=== PATIENT | female | born 1980 | race Caucasian/White ===

== ENCOUNTER 2021-07-26 18:48 | Emergency (ER) | payer OTHER ==
[2021-07-26 19:00] VITALS: BP 129/81; PULSE 100; TEMP 98; BMI 22.3
[2021-07-26] MEDS ORDERED: DEXAMETHASONE LIQUID 0.5 MG/5 ML PO ONE (19:46)
[2021-07-26] MEDS ORDERED: DEXAMETHASONE SOD PHOSPHATE 10 MG/1 ML VIAL ONE (19:48)
[2021-07-26 20:23] LABS: BASO % 0.6 % (0-2.0); EOS % 0.1 % (0-4.5); HEMATOCRIT 38.1 % (32.4-45.2); HEMOGLOBIN 12.8 GM/dL (10.7-15.3); LYMPH % 10.4 % (8-40); MCH 30.1 pg (25.7-33.7); MCHC 33.5 g/dl (32.0-36.0); MEAN CELL VOLUME 89.8 fl (80-96); MEAN PLT VOLUME 7.7 fl (7.5-11.1); MONO % 4.5 % (3.8-10.2); NEUT % 84.4 % (42.8-82.8); PLATELET COUNT 264 10^3/uL (134-434); RBC 4.24 M/mm3 (3.60-5.2); RDW 13.9 % (11.6-15.6); WHITE BLOOD COUNT 12.1 K/mm3 (4.0-10.0)
[2021-07-26 20:42] LABS: CALCIUM 8.7 mg/dL (8.5-10.1)
[2021-07-26 20:43] LABS: ALBUMIN 3.7 g/dl (3.4-5.0); BLOOD UREA NITROGEN 9.4 mg/dL (7-18)
[2021-07-26 20:46] LABS: CREATININE 0.8 mg/dL (0.55-1.3)
[2021-07-26 20:47] LABS: BILIRUBIN,TOTAL 0.8 mg/dL (0.2-1)
[2021-07-26] MEDS ORDERED: KETOROLAC TROMETHAMINE 30 MG/1 ML VIAL IVPUSH ONE (20:47)
[2021-07-26] MEDS ORDERED: KETOROLAC TROMETHAMINE 30 MG/1 ML VIAL ONE (20:50)
== END 2021-07-26 22:50 | disposition home or self-care (01) ==
LOC: JER 18:48
PROC: 3E033GC Introduction of Other Therapeutic Substance into Peripheral Vein, Percutaneous Approach (ICD-10-PCS; principal; 2021-07-26)
DX: S10.10XA Unspecified superficial injuries of throat, initial encounter (principal); Y04.8XXA Assault by other bodily force, initial encounter
CPT/HCPCS: 36415; 70491-TC; 80053; 84703; 85025; 99285-25; Q9967

== ENCOUNTER 2021-07-28 13:19 | Emergency (ER) | payer OTHER ==
[2021-07-28 13:42] VITALS: BMI 22.3
[2021-07-28] MEDS ORDERED: ACETAMINOPHEN 1000 MG/100 ML VIAL (NON FORMULARY) IVPB ONE (14:23)
[2021-07-28] MEDS ORDERED: LACTATED RINGERS SOLUTION 1000 ML INFUS.BAG IV ONE (14:24)
[2021-07-28] MEDS ORDERED: ACETAMINOPHEN INJECTION 100 ML IVPB ONE (14:30)
[2021-07-28] MEDS ORDERED: AMPICILLIN NA/SULBACTAM NA 3 GM in SODIUM CHLORIDE 100 ML IVPB ONE (14:47)
[2021-07-28 15:33] LABS: INR 1.01 (0.83-1.09); PROTHROMBIN TIME (PATIENT) 12.4 SEC (9.7-13.0)
[2021-07-28 15:36] LABS: ACTIVATED PTT 31.6 SECONDS (25.2-36.5)
[2021-07-28 15:41] LABS: CALCIUM 8.9 mg/dL (8.5-10.1)
[2021-07-28 15:42] LABS: ALBUMIN 3.9 g/dl (3.4-5.0); BLOOD UREA NITROGEN 16.2 mg/dL (7-18)
[2021-07-28 15:45] LABS: CREATININE 0.8 mg/dL (0.55-1.3)
[2021-07-28 15:47] LABS: BILIRUBIN,TOTAL 0.6 mg/dL (0.2-1); TOT PROT 8.4 g/dl (6.4-8.2)
[2021-07-28 15:58] LABS: BASO % 0.6 % (0-2.0); EOS % 0.3 % (0-4.5); HEMATOCRIT 40.2 % (32.4-45.2); HEMOGLOBIN 13.5 GM/dL (10.7-15.3); LYMPH % 21.8 % (8-40); MCHC 33.5 g/dl (32.0-36.0); MEAN CELL VOLUME 89.4 fl (80-96); MEAN PLT VOLUME 7.9 fl (7.5-11.1); MONO % 6.2 % (3.8-10.2); NEUT % 71.1 % (42.8-82.8); PLATELET COUNT 282 10^3/uL (134-434); RDW 14.1 % (11.6-15.6); WHITE BLOOD COUNT 9.9 K/mm3 (4.0-10.0)
[2021-07-28 22:48] VITALS: BP 105/61; PULSE 69
[2021-07-29 00:12] VITALS: TEMP 98.1
== END 2021-07-29 00:13 | disposition short-term general hospital (02) ==
LOC: JER 13:19
PROC: 3E03329 Introduction of Other Anti-infective into Peripheral Vein, Percutaneous Approach (ICD-10-PCS; principal; 2021-07-28)
PROC: 3E033NZ Introduction of Analgesics, Hypnotics, Sedatives into Peripheral Vein, Percutaneous Approach (ICD-10-PCS; 2021-07-28)
DX: S19.9XXA Unspecified injury of neck, initial encounter (principal); Y04.0XXA Assault by unarmed brawl or fight, initial encounter; Y92.9 Unspecified place or not applicable
CPT/HCPCS: 36415; 70450-TC; 70491-TC; 80053; 85025; 85610; 85730; 86850; 86900; 86901; 99284-25; C9803; J0131; Q9967; U0003; U0005

== ENCOUNTER 2023-10-14 10:08 | Emergency (ER) | payer OTHER ==
[2023-10-14 10:30] VITALS: BP 106/73; PULSE 74; RESP 16; TEMP 98.6; BMI 22.3
[2023-10-14] MEDS ORDERED: NAPROXEN 500 MG TABLET PO ONE (12:36)
[2023-10-14] MEDS ORDERED: LIDOCAINE 4% PATCH TP ONE ×2 (12:36→12:41)
[2023-10-14] MEDS ORDERED: NAPROXEN 500 MG TABLET ONE (12:41)
[2023-10-14] MEDS ORDERED: LIDOCAINE PATCH REMOVAL MC SCH (22:00)
== END 2023-10-14 14:30 | disposition home or self-care (01) ==
LOC: JERFT 10:08
DX: S13.4XXA Sprain of ligaments of cervical spine, initial encounter (principal); M54.2 Cervicalgia; R51.9 Headache, unspecified; V43.52XA Car driver injured in collision with other type car in traffic accident, initial encounter; Y93.I9 Activity, other involving external motion
CPT/HCPCS: 70450-TC; 72125-TC; 99284-25